=== PATIENT | female | born 1970 | race Two or more races ===

== ENCOUNTER 2017-06-28 09:19 | Emergency (ER) | payer OTHER ==
[~2017-06-28] VITALS: Ht 157.5 cm; Wt 64.9 kg
[2017-06-28 09:26] VITALS: BP 144/79; Ht 157.5 cm; Wt 64.9 kg
== END 2017-06-28 12:01 | disposition home or self-care (01) ==
LOC: ED 09:19
DX: J02.9 Acute pharyngitis, unspecified (principal)